=== PATIENT | male | born 1975 | race African-American/Black ===

== ENCOUNTER 2020-07-22 20:56 | Inpatient (IN) | payer BC ==
[~2020-07-22] VITALS: Ht 185.4 cm; Wt 89.8 kg
[2020-07-22 21:03] VITALS: BP_SYST 162
[2020-07-22] MEDS ORDERED: AMLO5TAB4 PO (21:17)
[2020-07-22] MEDS ORDERED: ACETAMINOPHEN 500 MG TABLET PO ONE (21:45)
[2020-07-22] MEDS ORDERED: NACL 0.9% 1,000 ML IV ONE (21:45)
[2020-07-22] MEDS ORDERED: ASPIRIN 325 MG TABLET PO ONE (22:45)
[2020-07-22 23:55] LABS: HEMATOCRIT 37.5 % (36-54); HEMOGLOBIN 12.7 g/dL (14.0-18.0); MEAN CORPUSCULAR HEMOGLOBIN 30 pg (27-31); MEAN CORPUSCULAR HGB CONC 34 % (32-36); MEAN CORPUSCULAR VOLUME 88 fL (79.0-98.0); PLATELET COUNT (AUTO) 407 K/uL (130-430); RED BLOOD CELL COUNT(AUTO) 4.26 MIL/uL (4.2-6.2); RED CELL DISTRIBUTION WIDTH 12.9 % (9.0-15.0); WHITE BLOOD COUNT (AUTO) 17.6 K/uL (4.8-10.8)
[2020-07-23 00:10] LABS: ANION GAP 7 (5-15); CALCIUM 8.4 mg/dL (8.4-11.0); CHLORIDE 95 mmol/L (98-107); CREATININE 1.08 mg/dL (0.55-1.30); GLUCOSE 379 mg/dL (70-99); POTASSIUM 4.1 mmol/L (3.5-5.1); SODIUM SERUM 131 mmol/L (136-145); UREA NITROGEN, BLOOD 16 mg/dL (8-21)
[2020-07-23 00:18] LABS: ALANINE AMINOTRANSFERASE 99 U/L (12-78); ALBUMIN 2.3 g/dL (3.4-4.8); ASPARTATE AMINOTRANSFERASE 62 U/L (10-37); TOTAL BILIRUBIN 0.5 mg/dL (0.0-1.0)
[2020-07-23 00:21] LABS: GFR AFRICAN AMERICAN 95 mL/min (>90)
[2020-07-23 00:25] LABS: ATYPICAL LYMPHOCYTES % 0 % (0-0); BAND % (MANUAL) 0 % (0-6); BASOPHILS % (MANUAL) 0 % (0-2); EOSINOPHILS % (MANUAL) 0 % (0-7); LYMPHOCYTES % (MANUAL) 9 % (20-46); MONOCYTES % (MANUAL) 11 % (0-11)
[2020-07-23] MEDS ORDERED: IOHEXOL 350 mgI/mL, 150 ML INFUS..BTL IV ONE (01:05)
[2020-07-23] MEDS ORDERED: NACL 0.9% 1,000 ML IV ONE (03:00)
[2020-07-23] MEDS ORDERED: cefTRIAXone 1 GM IVPB PREMIX 50 ML IV ONE ×2 (03:00→15:09)
[2020-07-23] MEDS ORDERED: VANCOMYCIN HCL 1,000 MG in NS 250 ML IV ONE (03:00)
[2020-07-23] MEDS ORDERED: VANCOMYCIN HCL 1000 MG/VIAL IV ONE (03:47)
[2020-07-23] MEDS ORDERED: cefTRIAXone 1 GM VIAL ONE (03:47)
[2020-07-23 14:02] LABS: BILIRUBIN,URINE NEGATIVE (NEGATIVE); BLOOD, URINE 1+ (NEGATIVE); CLARITY/URINE CLEAR (CLEAR); COLOR,URINE YELLOW (YELLOW); GLUCOSE,URINE 3+ (NEGATIVE); KETONES,URINE NEGATIVE (NEGATIVE); LEUKOCYTE ESTERASE ,URINE NEGATIVE (NEGATIVE); NITRITE, URINE NEGATIVE (NEGATIVE); PROTEIN URINE TRACE (NEGATIVE)
[2020-07-23 14:38] LABS: BACTERIA,URINE RARE /HPF (None Seen); MUCUS,URINE 1+ /LPF (None Seen); RBC,URINE 0-3 /HPF (0-3); WBC,URINE 0-3 /HPF (0-3)
[2020-07-23] MEDS ORDERED: cefTRIAXone 1 GM IVPB PREMIX 50 ML IV SCH (15:00)
[2020-07-23] MEDS: cefTRIAXone 1 GM IVPB PREMIX 50 ML IV SCH (15:40)
[2020-07-23 22:35] VITALS: BP_SYST 151
[2020-07-24] MEDS ORDERED: cefTRIAXone 1 GM IVPB PREMIX 50 ML IV ONE (02:50)
[2020-07-24] MEDS: cefTRIAXone 1 GM IVPB PREMIX 50 ML IV SCH ×2 (04:26→14:59)
[2020-07-24 07:40] VITALS: BP_SYST 144
[2020-07-24] MEDS ORDERED: ACETAMINOPHEN 325 MG TABLET PO PRN (10:45)
[2020-07-24] MEDS ORDERED: NALOXONE HCL 0.4 MG/ML AMP (NARCAN) IVP PRN ×2 (10:45)
[2020-07-24] MEDS ORDERED: HYDROcodone/ACETAMIN 5-325 MG TAB (NORCO/ VICODIN) PO PRN (10:45)
[2020-07-24] MEDS ORDERED: LORazepam 2 MG/ML VIAL IVP PRN (10:45)
[2020-07-24 11:22] LABS: BASOPHILS # (AUTO) 0.1 K/uL (0.0-0.2); BASOPHILS % (AUTO) 0.8 % (0.0-2.0); EOSINOPHILS % (AUTO) 0.3 % (0.0-4.0); HEMATOCRIT 36.3 % (36-54); LYMPHOCYTES # (AUTO) 1.9 K/uL (1.0-5.5); LYMPHOCYTES % (AUTO) 13.8 % (20.5-51.5); MEAN CORPUSCULAR HEMOGLOBIN 29 pg (27-31); MEAN CORPUSCULAR HGB CONC 33 % (32-36); MEAN CORPUSCULAR VOLUME 88 fL (79.0-98.0); MONOCYTES # (AUTO) 0.7 K/uL (0.0-1.0); MONOCYTES % (AUTO) 5.3 % (1.7-9.3); NEUTROPHILS # (AUTO) 11.2 K/uL (1.8-7.7); NEUTROPHILS % (AUTO) 79.8 % (40.0-70.0); PLATELET COUNT (AUTO) 386 K/uL (130-430); RED BLOOD CELL COUNT(AUTO) 4.11 MIL/uL (4.2-6.2); RED CELL DISTRIBUTION WIDTH 12.7 % (9.0-15.0)
[2020-07-24] MEDS ORDERED: amLODIPine BESYLATE 5 MG TABLET PO ONE (11:45)
[2020-07-24 11:48] LABS: CALCIUM 8.4 mg/dL (8.4-11.0); CREATININE 0.98 mg/dL (0.55-1.30); POTASSIUM 4.4 mmol/L (3.5-5.1)
[2020-07-24 12:11] LABS: ERYTHROCYTE SEDIMENTATION RATE 88 MM/HR (0-15)
[2020-07-24] MEDS: INSULIN REGULAR, HUMAN 100 UNITS/ML, 10 ML VIAL (humuLIN R) SUBCUT PRN ×3 (12:33→21:41)
[2020-07-24 12:38] VITALS: BP_SYST 128
[2020-07-24 12:42] LABS: C-REACTIVE PROTEIN QUANT 4.8 mg/dL (0-0.5)
[2020-07-24 13:49] LABS: ACETAMINOPHEN < 1 ug/mL (1-30); TOTAL IRON BIND. CAPACITY 155 ug/dL (250-450)
[2020-07-24 13:50] LABS: PROTHROMBIN TIME 9.8 SECS (9.5-12.5)
[2020-07-24] MEDS ORDERED: NORMAL SALINE 5 ML DISP.SYRIN IVF SCH (14:00)
[2020-07-24] MEDS ORDERED: BALSAM PERU/CASTOR OIL 60 GM OINT...G. TP ONE (14:30)
[2020-07-24] MEDS: NORMAL SALINE 5 ML DISP.SYRIN IVF SCH ×2 (14:59→21:37)
[2020-07-24 16:00] VITALS: BP_SYST 132
[2020-07-24 20:00] VITALS: BP_SYST 144
[2020-07-25] VITALS: BP_SYST 128
[2020-07-25] MEDS: NORMAL SALINE 5 ML DISP.SYRIN IVF SCH ×3 (06:12→22:56)
[2020-07-25] MEDS: INSULIN REGULAR, HUMAN 100 UNITS/ML, 10 ML VIAL (humuLIN R) SUBCUT PRN ×4 (06:21→21:42)
[2020-07-25 07:34] VITALS: BP_SYST 147
[2020-07-25] MEDS: BALSAM PERU/CASTOR OIL 60 GM OINT...G. TP SCH (07:37)
[2020-07-25 08:40] LABS: BASOPHILS # (AUTO) 0.1 K/uL (0.0-0.2); BASOPHILS % (AUTO) 0.6 % (0.0-2.0); EOSINOPHILS # (AUTO) 0.1 K/uL (0.0-0.4); EOSINOPHILS % (AUTO) 0.4 % (0.0-4.0); HEMOGLOBIN 12.4 g/dL (14.0-18.0); LYMPHOCYTES # (AUTO) 2.4 K/uL (1.0-5.5); LYMPHOCYTES % (AUTO) 13.4 % (20.5-51.5); MEAN CORPUSCULAR HEMOGLOBIN 30 pg (27-31); MEAN CORPUSCULAR HGB CONC 34 % (32-36); MEAN CORPUSCULAR VOLUME 88 fL (79.0-98.0); MONOCYTES % (AUTO) 5.7 % (1.7-9.3); NEUTROPHILS # (AUTO) 14.4 K/uL (1.8-7.7); NEUTROPHILS % (AUTO) 79.9 % (40.0-70.0); PLATELET COUNT (AUTO) 446 K/uL (130-430); RED BLOOD CELL COUNT(AUTO) 4.11 MIL/uL (4.2-6.2); RED CELL DISTRIBUTION WIDTH 12.8 % (9.0-15.0)
[2020-07-25 09:15] VITALS: BP_SYST 115
[2020-07-25] MEDS ORDERED: HYDROcodone/ACETAMIN 5-325 MG TAB (NORCO/ VICODIN) PO PRN (09:15)
[2020-07-25] MEDS ORDERED: HYDROmorphone 1 MG INJ. 1 MG/ML AMPUL IM PRN (09:15)
[2020-07-25] MEDS ORDERED: NALOXONE HCL 0.4 MG/ML AMP (NARCAN) IVP PRN ×2 (09:15)
[2020-07-25 09:16] LABS: ALBUMIN 1.9 g/dL (3.4-4.8); BILIRUBIN,DIRECT 0.1 mg/dL (0.0-0.3); CALCIUM 8.5 mg/dL (8.4-11.0); CREATININE 0.75 mg/dL (0.55-1.30); POTASSIUM 4.2 mmol/L (3.5-5.1); TOTAL BILIRUBIN 0.4 mg/dL (0.0-1.0)
[2020-07-25 11:07] LABS: HEPATITIS A AB, IgM Negative (Negative); HEPATITIS B CORE AB, IgM Negative (Negative); HEPATITIS B SURFACE AG Negative (Negative)
[2020-07-25] MEDS: amLODIPine BESYLATE 5 MG TABLET PO SCH (12:55)
[2020-07-25] MEDS: cefTRIAXone 1 GM IVPB PREMIX 50 ML IV SCH (14:23)
[2020-07-25 15:03] VITALS: BP_SYST 119
[2020-07-25 20:00] VITALS: BP_SYST 149
[2020-07-25] MEDS: HYDROcodone/ACETAMIN 10-325 MG TAB PO PRN (21:37)
[2020-07-25] MEDS ORDERED: PIPERACILLIN/TAZOBACTAM 4.5 GM/VIAL (ZOSYN) IV ONE (21:48)
[2020-07-25] MEDS: PIPERACILLIN/TAZO 4.5GM/DEX-IS 100 ML IV SCH (22:56)
[2020-07-26 00:23] VITALS: BP_SYST 112
[2020-07-26 03:39] LABS: CANNABINOID, URINE POSITIVE (NEG <=50)
[2020-07-26 03:40] LABS: BARBITURATE, URINE NEGATIVE (NEG <=200); BENZODIAZEPINE, URINE NEGATIVE (NEG <=150); COCAINE, URINE NEGATIVE (NEG <=150); METHAMPHETAMINES SCREEN,URINE POSITIVE (NEG <=500); OPIATE, URINE NEGATIVE (NEG <=100); PHENCYCLIDINE SCREEN,URINE NEGATIVE (NEG <=25); UR TRICYCLIC ANTIDEPRESSANTS NEGATIVE (NEG <=300); URINE AMPHETAMINE NEGATIVE (NEG <=500); URINE METHADONE NEGATIVE (NEG <=200); URINE OXYCODONE SCREEN NEGATIVE (NEG <=100); URINE PROPOXYPHENE SCREEN NEGATIVE (NEG <=300)
[2020-07-26 06:05] VITALS: BP_SYST 112
[2020-07-26] MEDS: PIPERACILLIN/TAZO 4.5GM/DEX-IS 100 ML IV SCH ×3 (06:28→20:53)
[2020-07-26] MEDS: INSULIN REGULAR, HUMAN 100 UNITS/ML, 10 ML VIAL (humuLIN R) SUBCUT PRN ×4 (06:28→20:49)
[2020-07-26] MEDS: NORMAL SALINE 5 ML DISP.SYRIN IVF SCH ×3 (06:40→20:53)
[2020-07-26 08:00] VITALS: BP_SYST 118
[2020-07-26] MEDS: BALSAM PERU/CASTOR OIL 60 GM OINT...G. TP SCH (09:00)
[2020-07-26] MEDS: amLODIPine BESYLATE 5 MG TABLET PO SCH (09:21)
[2020-07-26 12:09] VITALS: BP_SYST 133
[2020-07-26 12:26] LABS: BASOPHILS # (AUTO) 0.1 K/uL (0.0-0.2); BASOPHILS % (AUTO) 0.6 % (0.0-2.0); EOSINOPHILS % (AUTO) 0.3 % (0.0-4.0); HEMATOCRIT 37.5 % (36-54); HEMOGLOBIN 12.7 g/dL (14.0-18.0); LYMPHOCYTES # (AUTO) 1.4 K/uL (1.0-5.5); LYMPHOCYTES % (AUTO) 9.8 % (20.5-51.5); MEAN CORPUSCULAR HEMOGLOBIN 30 pg (27-31); MEAN CORPUSCULAR HGB CONC 34 % (32-36); MEAN CORPUSCULAR VOLUME 88 fL (79.0-98.0); MONOCYTES # (AUTO) 0.8 K/uL (0.0-1.0); MONOCYTES % (AUTO) 5.2 % (1.7-9.3); NEUTROPHILS # (AUTO) 12.3 K/uL (1.8-7.7); NEUTROPHILS % (AUTO) 84.1 % (40.0-70.0); PLATELET COUNT (AUTO) 445 K/uL (130-430); RED BLOOD CELL COUNT(AUTO) 4.28 MIL/uL (4.2-6.2); RED CELL DISTRIBUTION WIDTH 12.6 % (9.0-15.0); WHITE BLOOD COUNT (AUTO) 14.6 K/uL (4.8-10.8)
[2020-07-26 12:30] LABS: C-REACTIVE PROTEIN QUANT 5.5 mg/dL (0-0.5); CALCIUM 8.4 mg/dL (8.4-11.0); CREATININE 0.85 mg/dL (0.55-1.30); POTASSIUM 4.5 mmol/L (3.5-5.1)
[2020-07-26 13:10] LABS: ERYTHROCYTE SEDIMENTATION RATE 88 MM/HR (0-15)
[2020-07-26 16:16] VITALS: BP_SYST 119
[2020-07-26 20:30] VITALS: BP_SYST 123
[2020-07-27 00:30] VITALS: BP_SYST 130
[2020-07-27 06:40] LABS: BASOPHILS # (AUTO) 0.1 K/uL (0.0-0.2); BASOPHILS % (AUTO) 0.8 % (0.0-2.0); EOSINOPHILS # (AUTO) 0.1 K/uL (0.0-0.4); EOSINOPHILS % (AUTO) 0.9 % (0.0-4.0); HEMATOCRIT 38.1 % (36-54); HEMOGLOBIN 12.8 g/dL (14.0-18.0); LYMPHOCYTES # (AUTO) 2.8 K/uL (1.0-5.5); LYMPHOCYTES % (AUTO) 19.1 % (20.5-51.5); MEAN CORPUSCULAR HEMOGLOBIN 30 pg (27-31); MEAN CORPUSCULAR HGB CONC 34 % (32-36); MEAN CORPUSCULAR VOLUME 89 fL (79.0-98.0); MONOCYTES # (AUTO) 0.9 K/uL (0.0-1.0); NEUTROPHILS # (AUTO) 10.7 K/uL (1.8-7.7); NEUTROPHILS % (AUTO) 73.2 % (40.0-70.0); PLATELET COUNT (AUTO) 511 K/uL (130-430); RED BLOOD CELL COUNT(AUTO) 4.28 MIL/uL (4.2-6.2); RED CELL DISTRIBUTION WIDTH 12.6 % (9.0-15.0); WHITE BLOOD COUNT (AUTO) 14.6 K/uL (4.8-10.8)
[2020-07-27] MEDS: NORMAL SALINE 5 ML DISP.SYRIN IVF SCH ×3 (06:48→22:03)
[2020-07-27] MEDS: PIPERACILLIN/TAZO 4.5GM/DEX-IS 100 ML IV SCH ×3 (06:48→22:03)
[2020-07-27] MEDS: INSULIN REGULAR, HUMAN 100 UNITS/ML, 10 ML VIAL (humuLIN R) SUBCUT PRN ×4 (06:52→22:08)
[2020-07-27 06:54] LABS: CREATININE 0.95 mg/dL (0.55-1.30); POTASSIUM 4.7 mmol/L (3.5-5.1)
[2020-07-27 07:23] LABS: C-REACTIVE PROTEIN QUANT 6.3 mg/dL (0-0.5)
[2020-07-27 07:44] VITALS: BP_SYST 141
[2020-07-27] MEDS: amLODIPine BESYLATE 5 MG TABLET PO SCH (07:48)
[2020-07-27] MEDS: BALSAM PERU/CASTOR OIL 60 GM OINT...G. TP SCH ×2 (07:48→09:59)
[2020-07-27 12:15] VITALS: BP_SYST 159
[2020-07-27 13:26] LABS: ERYTHROCYTE SEDIMENTATION RATE 89 MM/HR (0-15)
[2020-07-27 15:32] LABS: FERRITIN 435 ng/mL (30-400)
[2020-07-27 20:50] VITALS: BP_SYST 140
[2020-07-28 00:32] VITALS: BP_SYST 133
[2020-07-28] MEDS: NORMAL SALINE 5 ML DISP.SYRIN IVF SCH ×3 (06:18→22:00)
[2020-07-28] MEDS: PIPERACILLIN/TAZO 4.5GM/DEX-IS 100 ML IV SCH ×3 (06:18→23:16)
[2020-07-28] MEDS: INSULIN REGULAR, HUMAN 100 UNITS/ML, 10 ML VIAL (humuLIN R) SUBCUT PRN ×4 (06:25→23:56)
[2020-07-28 07:07] LABS: ALBUMIN 1.9 g/dL (3.4-4.8); CALCIUM 8.8 mg/dL (8.4-11.0); CREATININE 0.96 mg/dL (0.55-1.30); POTASSIUM 4.5 mmol/L (3.5-5.1); TOTAL BILIRUBIN 0.4 mg/dL (0.0-1.0)
[2020-07-28 07:18] LABS: BASOPHILS # (AUTO) 0.1 K/uL (0.0-0.2); BASOPHILS % (AUTO) 0.9 % (0.0-2.0); EOSINOPHILS # (AUTO) 0.1 K/uL (0.0-0.4); EOSINOPHILS % (AUTO) 0.9 % (0.0-4.0); HEMATOCRIT 38.5 % (36-54); LYMPHOCYTES # (AUTO) 2.3 K/uL (1.0-5.5); LYMPHOCYTES % (AUTO) 20.4 % (20.5-51.5); MEAN CORPUSCULAR HEMOGLOBIN 30 pg (27-31); MEAN CORPUSCULAR HGB CONC 34 % (32-36); MEAN CORPUSCULAR VOLUME 89 fL (79.0-98.0); MONOCYTES # (AUTO) 0.6 K/uL (0.0-1.0); NEUTROPHILS # (AUTO) 8.3 K/uL (1.8-7.7); NEUTROPHILS % (AUTO) 72.8 % (40.0-70.0); PLATELET COUNT (AUTO) 508 K/uL (130-430); RED BLOOD CELL COUNT(AUTO) 4.34 MIL/uL (4.2-6.2); RED CELL DISTRIBUTION WIDTH 12.4 % (9.0-15.0); WHITE BLOOD COUNT (AUTO) 11.4 K/uL (4.8-10.8)
[2020-07-28 07:41] LABS: C-REACTIVE PROTEIN QUANT 3.8 mg/dL (0-0.5)
[2020-07-28 08:00] VITALS: BP_SYST 118
[2020-07-28] MEDS: amLODIPine BESYLATE 5 MG TABLET PO SCH (08:40)
[2020-07-28] MEDS: BALSAM PERU/CASTOR OIL 60 GM OINT...G. TP SCH ×2 (08:41→17:42)
[2020-07-28 11:01] LABS: ERYTHROCYTE SEDIMENTATION RATE 85 MM/HR (0-15)
[2020-07-28 15:48] VITALS: BP_SYST 122
[2020-07-28 20:45] VITALS: BP_SYST 124; BP_SYST 136
[2020-07-28] MEDS: HYDROcodone/ACETAMIN 10-325 MG TAB PO PRN (23:13)
[2020-07-28] MEDS: ONDANSETRON HCL 4 MG/2 ML VIAL IVP PRN (23:15)
[2020-07-28] MEDS: EMOLLIENT COMBINATION NO.73 78 GM CREAM..G. TP SCH (23:41)
[2020-07-29 00:20] VITALS: BP_SYST 137
[2020-07-29] MEDS: NORMAL SALINE 5 ML DISP.SYRIN IVF SCH ×3 (06:50→22:50)
[2020-07-29] MEDS: PIPERACILLIN/TAZO 4.5GM/DEX-IS 100 ML IV SCH ×3 (06:50→22:49)
[2020-07-29] MEDS: ONDANSETRON HCL 4 MG/2 ML VIAL IVP PRN (06:52)
[2020-07-29] MEDS: HYDROcodone/ACETAMIN 10-325 MG TAB PO PRN (06:53)
[2020-07-29 07:23] LABS: ALBUMIN 2.1 g/dL (3.4-4.8); CALCIUM 9.3 mg/dL (8.4-11.0); CREATININE 0.95 mg/dL (0.55-1.30); POTASSIUM 4.4 mmol/L (3.5-5.1); TOTAL BILIRUBIN 0.4 mg/dL (0.0-1.0)
[2020-07-29] MEDS: INSULIN REGULAR, HUMAN 100 UNITS/ML, 10 ML VIAL (humuLIN R) SUBCUT PRN ×4 (07:24→23:04)
[2020-07-29 07:33] LABS: BASOPHILS # (AUTO) 0.1 K/uL (0.0-0.2); EOSINOPHILS # (AUTO) 0.1 K/uL (0.0-0.4); EOSINOPHILS % (AUTO) 1.1 % (0.0-4.0); HEMATOCRIT 41.9 % (36-54); HEMOGLOBIN 14.1 g/dL (14.0-18.0); LYMPHOCYTES # (AUTO) 3.3 K/uL (1.0-5.5); LYMPHOCYTES % (AUTO) 26.5 % (20.5-51.5); MEAN CORPUSCULAR HEMOGLOBIN 30 pg (27-31); MEAN CORPUSCULAR HGB CONC 34 % (32-36); MEAN CORPUSCULAR VOLUME 89 fL (79.0-98.0); MONOCYTES # (AUTO) 0.8 K/uL (0.0-1.0); MONOCYTES % (AUTO) 6.3 % (1.7-9.3); NEUTROPHILS # (AUTO) 8.2 K/uL (1.8-7.7); NEUTROPHILS % (AUTO) 65.1 % (40.0-70.0); PLATELET COUNT (AUTO) 615 K/uL (130-430); RED BLOOD CELL COUNT(AUTO) 4.72 MIL/uL (4.2-6.2); RED CELL DISTRIBUTION WIDTH 12.7 % (9.0-15.0); WHITE BLOOD COUNT (AUTO) 12.6 K/uL (4.8-10.8)
[2020-07-29 08:00] VITALS: BP_SYST 122
[2020-07-29] MEDS: BALSAM PERU/CASTOR OIL 60 GM OINT...G. TP SCH (09:29)
[2020-07-29] MEDS: metFORMIN HCL 500 MG TABLET PO SCH ×2 (09:30→17:53)
[2020-07-29] MEDS: EMOLLIENT COMBINATION NO.73 78 GM CREAM..G. TP SCH ×2 (09:30→22:51)
[2020-07-29] MEDS: amLODIPine BESYLATE 5 MG TABLET PO SCH (09:34)
[2020-07-29] MEDS: PIOGLITAZONE HCL 15 MG TABLET PO SCH (09:38)
[2020-07-29 10:00] VITALS: BP_SYST 122
[2020-07-29 10:06] LABS: ANTI-SMOOTH MUSCLE AB 12 Units (0-19)
[2020-07-29 10:25] LABS: C-REACTIVE PROTEIN QUANT 2.7 mg/dL (0-0.5)
[2020-07-29 11:05] VITALS: BP_SYST 138
[2020-07-29 11:07] LABS: ERYTHROCYTE SEDIMENTATION RATE 73 MM/HR (0-15)
[2020-07-29 15:26] VITALS: BP_SYST 126
[2020-07-30] VITALS: BP_SYST 130
[2020-07-30] MEDS: PIPERACILLIN/TAZO 4.5GM/DEX-IS 100 ML IV SCH ×2 (05:52→14:40)
[2020-07-30] MEDS: NORMAL SALINE 5 ML DISP.SYRIN IVF SCH ×2 (05:53→14:40)
[2020-07-30] MEDS: INSULIN REGULAR, HUMAN 100 UNITS/ML, 10 ML VIAL (humuLIN R) SUBCUT PRN ×3 (06:20→16:53)
[2020-07-30 07:23] LABS: BASOPHILS # (AUTO) 0.1 K/uL (0.0-0.2); BASOPHILS % (AUTO) 0.7 % (0.0-2.0); EOSINOPHILS # (AUTO) 0.1 K/uL (0.0-0.4); EOSINOPHILS % (AUTO) 0.6 % (0.0-4.0); HEMATOCRIT 38.8 % (36-54); HEMOGLOBIN 13.3 g/dL (14.0-18.0); LYMPHOCYTES # (AUTO) 2.5 K/uL (1.0-5.5); LYMPHOCYTES % (AUTO) 20.5 % (20.5-51.5); MEAN CORPUSCULAR HEMOGLOBIN 30 pg (27-31); MEAN CORPUSCULAR HGB CONC 34 % (32-36); MEAN CORPUSCULAR VOLUME 88 fL (79.0-98.0); MONOCYTES # (AUTO) 0.6 K/uL (0.0-1.0); MONOCYTES % (AUTO) 4.8 % (1.7-9.3); NEUTROPHILS % (AUTO) 73.4 % (40.0-70.0); PLATELET COUNT (AUTO) 580 K/uL (130-430); RED CELL DISTRIBUTION WIDTH 12.6 % (9.0-15.0); WHITE BLOOD COUNT (AUTO) 12.3 K/uL (4.8-10.8)
[2020-07-30 07:37] VITALS: BP_SYST 153
[2020-07-30 07:51] VITALS: BP_SYST 126
[2020-07-30 08:03] LABS: ALBUMIN 2.1 g/dL (3.4-4.8); CALCIUM 9.6 mg/dL (8.4-11.0); CREATININE 0.88 mg/dL (0.55-1.30); POTASSIUM 4.6 mmol/L (3.5-5.1); TOTAL BILIRUBIN 0.5 mg/dL (0.0-1.0)
[2020-07-30] MEDS: metFORMIN HCL 500 MG TABLET PO SCH ×2 (08:45→17:20)
[2020-07-30] MEDS: PIOGLITAZONE HCL 15 MG TABLET PO SCH (08:45)
[2020-07-30] MEDS: amLODIPine BESYLATE 5 MG TABLET PO SCH (08:45)
[2020-07-30] MEDS: BALSAM PERU/CASTOR OIL 60 GM OINT...G. TP SCH (08:46)
[2020-07-30] MEDS: EMOLLIENT COMBINATION NO.73 78 GM CREAM..G. TP SCH (08:47)
[2020-07-30 11:21] LABS: ERYTHROCYTE SEDIMENTATION RATE 84 MM/HR (0-15)
[2020-07-30 12:18] LABS: C-REACTIVE PROTEIN QUANT 1.5 mg/dL (0-0.5)
[2020-07-30 12:28] VITALS: BP_SYST 124
[2020-07-30 16:56] VITALS: BP_SYST 124
[2020-07-30] MEDS ORDERED: DOCUSATE SODIUM 100 MG CAPSULE PO PRN (18:00)
[2020-07-31] MEDS ORDERED: DOCUSATE SODIUM 100 MG CAPSULE PO ONE (00:08)
[2020-07-31] MEDS: PIPERACILLIN/TAZO 4.5GM/DEX-IS 100 ML IV SCH ×3 (00:13→16:42)
[2020-07-31] MEDS: EMOLLIENT COMBINATION NO.73 78 GM CREAM..G. TP SCH ×2 (00:17→09:45)
[2020-07-31] MEDS: NORMAL SALINE 5 ML DISP.SYRIN IVF SCH ×2 (00:17→05:46)
[2020-07-31] MEDS: INSULIN REGULAR, HUMAN 100 UNITS/ML, 10 ML VIAL (humuLIN R) SUBCUT PRN ×2 (00:27→05:53)
[2020-07-31 01:23] VITALS: BP_SYST 137
[2020-07-31 07:55] LABS: BASOPHILS # (AUTO) 0.1 K/uL (0.0-0.2); BASOPHILS % (AUTO) 0.7 % (0.0-2.0); EOSINOPHILS % (AUTO) 0.3 % (0.0-4.0); HEMOGLOBIN 12.9 g/dL (14.0-18.0); LYMPHOCYTES # (AUTO) 2.7 K/uL (1.0-5.5); LYMPHOCYTES % (AUTO) 21.5 % (20.5-51.5); MEAN CORPUSCULAR HEMOGLOBIN 30 pg (27-31); MEAN CORPUSCULAR HGB CONC 34 % (32-36); MEAN CORPUSCULAR VOLUME 88 fL (79.0-98.0); MONOCYTES # (AUTO) 0.6 K/uL (0.0-1.0); MONOCYTES % (AUTO) 5.1 % (1.7-9.3); NEUTROPHILS # (AUTO) 9.2 K/uL (1.8-7.7); NEUTROPHILS % (AUTO) 72.4 % (40.0-70.0); PLATELET COUNT (AUTO) 546 K/uL (130-430); RED BLOOD CELL COUNT(AUTO) 4.31 MIL/uL (4.2-6.2); RED CELL DISTRIBUTION WIDTH 12.8 % (9.0-15.0); WHITE BLOOD COUNT (AUTO) 12.7 K/uL (4.8-10.8)
[2020-07-31 08:00] VITALS: BP_SYST 140
[2020-07-31 08:16] LABS: ALBUMIN 2.1 g/dL (3.4-4.8); CALCIUM 8.9 mg/dL (8.4-11.0); CREATININE 0.84 mg/dL (0.55-1.30); POTASSIUM 4.1 mmol/L (3.5-5.1); TOTAL BILIRUBIN 0.4 mg/dL (0.0-1.0)
[2020-07-31 09:10] LABS: C-REACTIVE PROTEIN QUANT 0.8 mg/dL (0-0.5)
[2020-07-31] MEDS: metFORMIN HCL 500 MG TABLET PO SCH (09:40)
[2020-07-31] MEDS: amLODIPine BESYLATE 5 MG TABLET PO SCH (09:41)
[2020-07-31] MEDS: PIOGLITAZONE HCL 15 MG TABLET PO SCH (09:44)
[2020-07-31] MEDS ORDERED: DOCUSATE SODIUM 100 MG CAPSULE PO PRN (09:45)
[2020-07-31] MEDS: BALSAM PERU/CASTOR OIL 60 GM OINT...G. TP SCH (09:46)
[2020-07-31 11:07] LABS: ERYTHROCYTE SEDIMENTATION RATE 83 MM/HR (0-15)
[2020-07-31 12:00] VITALS: BP_SYST 135
[2020-07-31 12:06] LABS: LIVER-KIDNEY MICROSOMAL AB 0.9 Units (0.0-20.0)
[2020-07-31] MEDS ORDERED: PIOG15TA8 PO (15:34)
[2020-07-31] MEDS ORDERED: GLU500 PO (15:34)
[2020-07-31] MEDS ORDERED: LINE600T12 PO (15:34)
[2020-07-31 16:00] VITALS: BP_SYST 130
[2020-07-31 16:37] VITALS: BP_SYST 135
[2020-08-02 03:09] LABS: CERULOPLASMIN 39.5 mg/dL (16.0-31.0)
[2020-08-04 16:12] LABS: ALPHA-1-ANTITRYPSIN, S 207 mg/dL (101-187)
== END 2020-07-31 18:00 | disposition home health service (06) | DRG 853 ==
LOC: SED 20:56 → SMU 07-23 03:17
PROVIDERS: ADMIT Preventive Medicine Preventive Medicine/Occupational Environmental Medicine; ATTEND Preventive Medicine Preventive Medicine/Occupational Environmental Medicine
PROC: 0Y6P0Z3 Detachment at Right 1st Toe, Low, Open Approach (ICD-10-PCS; 2020-07-25)
PROC: 0JBQ0ZZ Excision of Right Foot Subcutaneous Tissue and Fascia, Open Approach (ICD-10-PCS; principal; 2020-07-25 07:30)
DX: A41.9 Sepsis, unspecified organism (principal); E43 Unspecified severe protein-calorie malnutrition; E87.1 Hypo-osmolality and hyponatremia; E87.2 Acidosis; L03.115 Cellulitis of right lower limb; L02.611 Cutaneous abscess of right foot; E11.52 Type 2 diabetes mellitus with diabetic peripheral angiopathy with gangrene; R74.01 Elevation of levels of liver transaminase levels; E88.09 Other disorders of plasma-protein metabolism, not elsewhere classified; Z20.822 Contact with and (suspected) exposure to COVID-19; F12.90 Cannabis use, unspecified, uncomplicated; I10 Essential (primary) hypertension; J45.909 Unspecified asthma, uncomplicated; D64.9 Anemia, unspecified; K76.9 Liver disease, unspecified; D47.3 Essential (hemorrhagic) thrombocythemia; E11.65 Type 2 diabetes mellitus with hyperglycemia; Z68.26 Body mass index [BMI] 26.0-26.9, adult
CPT/HCPCS: 36415; 36430; 71275; 73590-TC; 76376; 76700-TC; 80048; 80053; 80074; 80076; 80307; 81000-TC; 82103; 82390; 82728; 82962; 82977-TC; 83036; 83516; 83540-TC; 83550-TC; 83605; 84484; 85007; 85025; 85027; 85610-TC; 85651-TC; 86140; 86376; 87040-TC; 87070; 87070-TC; 87075-TC; 87081; 87186-TC; 88305; 93005; 93971; 94010; 97112-GP; 97116-GP; 97163; G0480; G0481; J0696; J1815; J2405; J2543; J3370; J7060; Q9967